=== PATIENT | female | born 1980 | race African-American/Black ===

== ENCOUNTER 2021-05-31 18:11 | Emergency (ER) | payer MEDICAID ==
[~2021-05-31] VITALS: Ht 180.3 cm; Wt 62.0 kg
[2021-05-31 18:14] VITALS: BP 101/70
== END 2021-05-31 23:34 | disposition left against medical advice (07) ==
LOC: ER 18:11
DX: Z53.21 Procedure and treatment not carried out due to patient leaving prior to being seen by health care provider (principal)